=== PATIENT | male | born 1975 | race Caucasian/White ===

== ENCOUNTER 2019-06-30 21:57 | Emergency (ER) | payer MEDICAID ==
[~2019-06-30] VITALS: Ht 175.3 cm; Wt 81.6 kg
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
--- NOTE | 2019-06-30 21:59 | NUR ---
PT TAKEN TO BED 11
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
--- NOTE | 2019-06-30 21:59 | NUR ---
Dr. Ferrell examining patient.
[2019-06-30 22:03] VITALS: BP 145/93
[2019-06-30] MEDS ORDERED: LIDOCAINE MPF 1% 20 ML ONE (22:06)
--- NOTE | 2019-06-30 22:13 | NUR ---
[facility]ly will called, will send officers.
[2019-06-30] MEDS ORDERED: LIDOCAINE MPF 1% 10 ML ONE ×2 (22:17→22:26)
--- NOTE | 2019-06-30 22:25 | NUR ---
OFFICER SUBHASH FROM [place] [employer] AT BEDSIDE TO SPEAK WITH PT.
[2019-06-30] MEDS ORDERED: ceFAZolin 1,000 MG VIAL ONE (22:27)
--- NOTE | 2019-06-30 22:28 | NUR ---
Note undone in EDM - 06/30/19 at 2342 by [email or web address] PT DISCHARGED BY DR FERNANDEZ PROVIDED WITH PAPERWORK. RX KECAROL, DARIANROSYN. EDUCATED PT REGARDING MEDICATION AND S/E. EDUCATED PT REGARDING D/C DIAGNOSIS AND INSTRUCTIONS. PT VERBALIZED UNDERSTANDING OF TEACHING. TOLD PT TO FOLLOW UP WITH PCP AND WHEN TO RETURN TO ED. PT VSS. ALL QUESTIONS ANSWERED.
--- NOTE | 2019-06-30 22:49 | NUR ---
ATTEMPTED TO APPLY A MEDIUM SLING TO THE PATIENT. PATIENT REFUSES STATING "IT IS FINE. I'LL TAKE CARE OF IT MYSELF. I DON'T WANT TO BE CHARGED FOR IT."
[2019-06-30 23:28] VITALS: BP 145/93
--- NOTE | 2019-06-30 23:28 | NUR ---
PT DISCHARGED BY DR FERNANDEZ PROVIDED WITH PAPERWORK. RX JESSE CASANOVA. EDUCATED PT REGARDING MEDICATION AND S/E. EDUCATED PT REGARDING D/C DIAGNOSIS AND INSTRUCTIONS. PT VERBALIZED UNDERSTANDING OF TEACHING. TOLD PT TO FOLLOW UP WITH PCP AND WHEN TO RETURN TO ED. PT VSS. ALL QUESTIONS ANSWERED.
== END 2019-06-30 23:28 | disposition home or self-care (01) ==
LOC: MED 21:57
DX: S61.210A Laceration without foreign body of right index finger without damage to nail, initial encounter (principal); W45.8XXA Other foreign body or object entering through skin, initial encounter; Y93.89 Activity, other specified; Y92.89 Other specified places as the place of occurrence of the external cause; Y99.8 Other external cause status
CPT/HCPCS: 12004; 73130; 90471; 90715; 96365; 99291; J0690; J2001; Q0092